=== PATIENT | female | born 1985 | race Caucasian/White ===

== ENCOUNTER → 2016-07-16 | Outpatient (CLI) | payer MEDICAID ==
[~2016-07-16] MED LIST: ALBU8I INH; AMOX500T PO; ANTISOL30 LEFT EAR; CETI10 PO; OB CCAP2 PO; VENTAER INH
[2016-07-16 11:25] LABS: AUTOMATED NEUTROPHIL # 5.5 TH/MM3 (1.8-7.7); BASOPHIL % 0.5 % (0.0-2.0); EOSINOPHIL # 0.6 TH/MM3 (0-0.4); EOSINOPHIL % 6.6 % (0.0-4.0); HEMATOCRIT 40.7 % (35.0-46.0); HEMO FLAGS DIFF FINAL; LYMPH % 30.2 % (9.0-44.0); LYMPHOCYTE # 2.8 TH/MM3 (1.0-4.8); MEAN CELL VOLUME 88.9 FL (80.0-100.0); MEAN CORPUSCULAR HEMOGLOBIN 30.7 PG (27.0-34.0); MEAN CORPUSCULAR HGB CONC 34.6 % (32.0-36.0); NEUT % 58.7 % (16.0-70.0); PLATELET COUNT 279 TH/MM3 (150-450); RED BLOOD COUNT 4.58 MIL/MM3 (4.00-5.30); WHITE BLOOD COUNT 9.4 TH/MM3 (4.0-11.0)
== END ==
LOC: CPRE 10:36
PROVIDERS: ATTEND Obstetrics & Gynecology
DX: Z01.812 Encounter for preprocedural laboratory examination (principal); O02.1 Missed abortion; Z3A.00 Weeks of gestation of pregnancy not specified
CPT/HCPCS: 36415; 85025

== ENCOUNTER → 2016-07-21 | Day surgery (SDC) | payer MEDICAID ==
[~2016-07-21] VITALS: Ht 167.6 cm; Wt 80.6 kg
[~2016-07-21] MED LIST changes: +*diphenhydrAMINE HCL 50 MG/ML VIAL PERIprocedural Use ONLY ONE; +*morphine SULFATE 8 MG/ML PERIprocedure ONLY ONE; +ACETAMINOPHEN 1000 MG/100 ML VIAL IV ONE; -ALBU8I INH; -AMOX500T PO; -ANTISOL30 LEFT EAR; +CHLORHEXIDINE GLUCONATE 2 % 1 PACK (2 CLOTHS) TOPICAL PRN; +DEXAMETHASONE SOD PHOS 4 MG/ML VIAL ONE; +DO NOT ADM ANY ANTICOAGULANT DRUGS PRN; +FAMOTIDINE 20 MG/2 ML VIAL ONE; +IBUPROFEN 600 MG TAB PO PRN; +INSULIN HUMAN REGULAR 1,000 UNITS/10 ML VIAL SQ PRN; +KETOROLAC TROMETHAMINE 60 MG/2 ML (IM) VIAL IM ONE; +LACTATED RINGER'S 1000 ML INJ 1,000 ML IV SCH; +LACTATED RINGER'S 1000 ML IV PRN; +METHYLERGONOVINE MALEATE 0.2 MG TAB ONE; +METOPROLOL TARTRATE 25 MG TAB PO PRN; +MIDAZOLAM HCL 2 MG/2 ML VIAL ONE; +ONDANSETRON HCL 4 MG/2 ML VIAL IV PUSH ONE; +ONDANSETRON HCL 4 MG/2 ML VIAL IVP PRN; +POVIDONE IODINE 5% (ANTISEPSIS KIT) 4 APPLICATIONS EACH NARE PRN; +PROPOFOL 200 MG/20 ML AMP IV ONE; +SODIUM CHLORID 0.9% 500 ML IV PRN; +SODIUM CHLORIDE 0.9% FLUSH 10 ML FLUSH IV FLUSH PRN; +SODIUM CHLORIDE 0.9% FLUSH 10 ML FLUSH IV FLUSH SCH; +ceFAZolin 2 GM PREMIX 50 ML IV SCH; +oxyCODONE/ACETAMINOPHEN 5 MG/325 MG TAB PO PRN
[2016-07-21 09:08] VITALS: BP 121/86; PULSE 79; RESP 16; TEMP 98.1; O2SAT 100
--- NOTE | 2016-07-21 12:16 | MP ---
cc: STEPHANIE TORRES MD CORTEZ,AB Sharif M.D. DATE OF SURGERY: 07/21/2016 PREOPERATIVE DIAGNOSIS Missed at about 6 weeks gestation. POSTOPERATIVE DIAGNOSIS Missed at about 6 weeks gestation. SURGEON Ab Aragon MD ANESTHESIA General with LMA ESTIMATED BLOOD LOSS None. The patient's maternal blood type is O+. INDICATION FOR PROCEDURE Patient was followed for early . The patient failed to develop normal growth. Yolk sac was evident but no evidence of pole confirmed by serial ultrasound. The patient elected for D&C with suction. The patient's maternal blood type is O+. DESCRIPTION OF PROCEDURE The patient received Ancef x 2 grams prophylactically. She underwent general anesthesia with LMA. She was carefully positioned in dorsolithotomy position using candy-cane stirrups with sequentials placed on lower extremities for VTE prophylaxis. She was carefully positioned in appropriate padding where necessary. The time-out was conducted and agreed by all present in the room. The patient was then draped. Exam revealed a retroverted uterus about 7 weeks in size. The cervix was identified by simple bivalve retractor, secured with a single-tooth tenaculum, dilated to accommodate a #8 curved suction curette which was passed into the uterine cavity without complication, no perforation. Evacuation of the uterine contents was accomplished. Tissue was labeled products of conception. A handheld curette was then used to confirm removal of all products of conception with the gentle curettage. At the completion of the case there was no active bleeding. The patient received Methergine 0.2 mg IM x1. The final count was correct. She was taken to the recovery room on room air. Ab Aragon MD SJC/TLL /11:05 AM /12:04 PM
[2016-07-21 12:30] VITALS: BP 106/70; PULSE 64; RESP 16; TEMP 97.8; O2SAT 99
== END | disposition home or self-care (01) ==
LOC: HSDC 08:28
PROVIDERS: ATTEND Obstetrics & Gynecology
DX: O03.4 Incomplete spontaneous abortion without complication (principal); J45.909 Unspecified asthma, uncomplicated
CPT/HCPCS: 01965; 59812; 86850; 86900; 86901; 88305; J0131; J0690; J1100; J1200; J1885; J2250; J2270; J2405; J3010; J7120

== ENCOUNTER 2016-10-21 11:52 | Emergency (ER) | payer MEDICAID ==
[~2016-10-21] VITALS: Ht 167.6 cm; Wt 72.7 kg
[~2016-10-21 11:52] MED LIST changes: -*diphenhydrAMINE HCL 50 MG/ML VIAL PERIprocedural Use ONLY ONE; -*morphine SULFATE 8 MG/ML PERIprocedure ONLY ONE; -ACETAMINOPHEN 1000 MG/100 ML VIAL IV ONE; -CHLORHEXIDINE GLUCONATE 2 % 1 PACK (2 CLOTHS) TOPICAL PRN; -DEXAMETHASONE SOD PHOS 4 MG/ML VIAL ONE; -DO NOT ADM ANY ANTICOAGULANT DRUGS PRN; -FAMOTIDINE 20 MG/2 ML VIAL ONE; -IBUPROFEN 600 MG TAB PO PRN; -INSULIN HUMAN REGULAR 1,000 UNITS/10 ML VIAL SQ PRN; -KETOROLAC TROMETHAMINE 60 MG/2 ML (IM) VIAL IM ONE; -LACTATED RINGER'S 1000 ML INJ 1,000 ML IV SCH; -LACTATED RINGER'S 1000 ML IV PRN; -METHYLERGONOVINE MALEATE 0.2 MG TAB ONE; -METOPROLOL TARTRATE 25 MG TAB PO PRN; -MIDAZOLAM HCL 2 MG/2 ML VIAL ONE; -ONDANSETRON HCL 4 MG/2 ML VIAL IV PUSH ONE; -ONDANSETRON HCL 4 MG/2 ML VIAL IVP PRN; -POVIDONE IODINE 5% (ANTISEPSIS KIT) 4 APPLICATIONS EACH NARE PRN; -PROPOFOL 200 MG/20 ML AMP IV ONE; -SODIUM CHLORID 0.9% 500 ML IV PRN; -SODIUM CHLORIDE 0.9% FLUSH 10 ML FLUSH IV FLUSH PRN; -SODIUM CHLORIDE 0.9% FLUSH 10 ML FLUSH IV FLUSH SCH; -ceFAZolin 2 GM PREMIX 50 ML IV SCH; -oxyCODONE/ACETAMINOPHEN 5 MG/325 MG TAB PO PRN
[2016-10-21 11:53] VITALS: BP 123/75; PULSE 78; RESP 18; TEMP 98.6; O2SAT 98
--- NOTE | 2016-10-21 11:59 | PD ---
Physical Exam Time Seen by Provider: 11:57 Narrative 30 y/o female here with bilateral ankle pain. She stepped on a rock yesterday. Vital signs reviewed. Seen at triage desk. Awaiting bed placement. Data Data Last Documented VS Vital Signs Date Time Temp Pulse Resp B/P Pulse Ox O2 Delivery O2 Flow Rate FiO2 10/21/16 11:53 98.6 78 18 123/75 98 Room Air [facility] Medical Record Reviewed: Yes Supervised Visit with MICHELLE: Sam Figueroa Oct 21, 2016 11:59
--- NOTE | 2016-10-21 13:08 | PD ---
HPI Chief Complaint: Injury Time Seen by Provider: 13:08 Travel History International Travel<30 days: No Contact w/Intl Traveler<30days: No Traveled to known affect area: No History of Present Illness HPI 30-year-old female presents to the emergency room department for evaluation of bilateral ankle pain. Patient states last evening she stepped on a rock with her right foot and rolled her ankle. She tried to save her from falling when she stepped with her left foot onto the sidewalk but missed it, rolling over it. States today. Walking has been extremely painful. Her ankles are both swollen. She states that she believes she may have broken something. She has no other symptoms to report. PFSH Past Medical History Asthma: Yes Cancer: No Cardiovascular Problems: No Diabetes: No Endocrine: No Genitourinary: No Hepatitis: No Hiatal Hernia: No Immune Disorder: No Musculoskeletal: No Neurologic: No Psychiatric: No Respiratory: Yes (ASTHMA) Thyroid Disease: No ?: Not LMP: 09/30/16 Dilation and Curettage (D&C): Yes Past Surgical History Abdominal Surgery: No AICD: No Body Medical Devices: BRACES Cardiac Surgery: No Ear Surgery: No Endocrine Surgery: No Eye Surgery: No Genitourinary Surgery: No Gynecologic Surgery: Yes (D/C ) Joint Replacement: No Oral Surgery: No Pacemaker: No Thoracic Surgery: No Social History Alcohol Use: No Tobacco Use: No Substance Use: No Allergies-Medications (Allergen,Severity, Reaction): Coded Allergies: Tetracycline (Verified Allergy, Severe, HIVES, 10/21/16) Cipro (Verified Allergy, Unknown, 10/21/16) Reported Meds & Prescriptions Reported Meds & Active Scripts Active Ibuprofen 800 Mg Tab 800 Mg PO Q8H PRN Reported Ob Complete/Dha 30-10-1-200 mg (Prenat Vit W/ Iron Carbonyl-Fe) 1 Cap Cap 1 Cap PO DAILY Ventolin Hfa 18 GM Inh (Albuterol Sulfate) 90 Mcg/Act Aer 2 Puff INH Q4-6H PRN Cetirizine (Cetirizine HCl) 10 Mg Tab 10 Mg PO DAILY Review of Systems Except as stated in HPI: all other systems reviewed are Neg Physical Exam Narrative GENERAL: Well-nourished, well-developed female patient in no acute distress SKIN: Focused skin assessment warm/dry. HEAD: Normocephalic. EYES: No scleral icterus. No injection or drainage. NECK: Supple, trachea midline. No JVD or lymphadenopathy. CARDIOVASCULAR: Regular rate and rhythm without murmurs, gallops, or rubs. RESPIRATORY: Breath sounds equal bilaterally. No accessory muscle use. EXTREMITY: The right and left ankles are swollen and tender over the lateral aspect but the skin is intact and there is no ligamentous instability. There is no deformity. The foot and toes are warm and well-perfused. Sensation to pain and light touch is intact. Data Data Last Documented VS Vital Signs Date Time Temp Pulse Resp B/P Pulse Ox O2 Delivery O2 Flow Rate FiO2 10/21/16 13:08 Room Air 10/21/16 11:53 98.6 78 18 123/75 98 Orders Ankle, Limited (Ap&Lat) (10/21/16 ) Ankle, Limited (Ap&Lat) (10/21/16 ) Crutches (10/21/16 15:33) MDM Medical Decision Making Medical Screen Exam Complete: Yes Emergency Medical Condition: Yes Medical Record Reviewed: Yes Differential Diagnosis Sprain versus fracture versus contusion versus dislocation Narrative Course 30-year-old female presents to the emergency department for evaluation. Patient appears without distress. She does have bilateral ankle swelling. X- ray imaging is without acute bony abnormality. Patient is able to ambulate. Patient is placed in Dung wraps and provided crutches. She is counseled on care. She agrees to return immediately with any acute worsening symptoms. Diagnosis Primary Impression: Left ankle sprain Qualified Code: S93.402A - Sprain of left ankle, unspecified ligament, initial encounter Additional Impression: Right ankle sprain Qualified Code: S93.401A - Sprain of right ankle, unspecified ligament, initial encounter Referrals: Primary Care Physician Patient Instructions: Ankle Sprain (ED), Ankle Sprain Exercises (GEN), General Instructions Additional Instructions: Ice and elevate the affected extremity DUNG wrap and/or ankle brace for support and comfort Return to ED with acute worsening of symptoms Med/Other Pt SpecificInfo: Prescription(s) given Scripts Ibuprofen 800 Mg Atd253 Mg PO Q8H PRN (PAIN SCALE 1 TO 10) #30 TAB Ref 0 Prov:Frances Alberto 10/21/16 Disposition: 01 DISCHARGE HOME Condition: Stable Frances Alberto Oct 21, 2016 13:08
--- NOTE | 2016-10-21 14:05 | RADRPT ---
EXAM DATE/TIME: 10/21/2016 13:54 [facility] COMPARISON: ANKLE RIGHT LIMITED (AP&LAT), October 21, 2016, 13:52. INDICATIONS : Patient stepped on a rock and twisted right ankle and proceeded to fall down on left ankle last night . MEDICAL HISTORY : None. SURGICAL HISTORY : None. ENCOUNTER: Initial ACUITY: 1 day PAIN SCORE: 5/10 LOCATION: Left Posterior aspect of ankle. FINDINGS: There is diffuse soft tissue swelling about the ankle mortise. No acute fracture or retained foreign body is identified. CONCLUSION: Diffuse soft tissue swelling. No acute fracture or retained foreign body is identified. Nikos Hall MD on October 21, 2016 at 14:03 Board Certified Radiologist. This report was verified electronically.
--- NOTE | 2016-10-21 14:26 | RADRPT ---
EXAM DATE/TIME: 10/21/2016 13:52 [facility] COMPARISON: No previous studies available for comparison. INDICATIONS : Patient stepped on a rock and twisted right ankle and proceeded to fall down on left ankle last night . MEDICAL HISTORY : None. SURGICAL HISTORY : None. ENCOUNTER: Initial ACUITY: 1 day PAIN SCORE: 5/10 LOCATION: Right Lateral ankle. FINDINGS: Two view examination was performed of the right ankle. The bony structures are in normal alignment. No evidence of fracture or dislocation. Lateral soft tissue swelling. No radiopaque foreign bodies are seen. Bony mineralization is normal. CONCLUSION: Lateral soft tissue swelling. Edgar Manrique Jr., MD on October 21, 2016 at 14:23 Board Certified Radiologist. This report was verified electronically.
[2016-10-21] MEDS ORDERED: IBUP800T23 PO (14:42)
== END 2016-10-21 15:11 | disposition home or self-care (01) ==
LOC: NEPK 11:52
DX: S93.402A Sprain of unspecified ligament of left ankle, initial encounter (principal); S93.401A Sprain of unspecified ligament of right ankle, initial encounter; J45.909 Unspecified asthma, uncomplicated; W22.8XXA Striking against or struck by other objects, initial encounter; Z79.899 Other long term (current) drug therapy; Z88.1 Allergy status to other antibiotic agents
CPT/HCPCS: 73600; 99283; E0113

== ENCOUNTER 2017-03-28 09:54 | Emergency (ER) | payer MEDICAID ==
[~2017-03-28] VITALS: Ht 167.6 cm; Wt 80.0 kg
[~2017-03-28 09:54] MED LIST changes: +IBUP1TAB7 PO
[2017-03-28 09:55] VITALS: BP 158/78; PULSE 129; RESP 18; TEMP 98.4; O2SAT 95
[2017-03-28 10:16] VITALS: BP 133/77; PULSE 112; RESP 19; O2SAT 95
--- NOTE | 2017-03-28 10:19 | PD ---
HPI Chief Complaint: Respiratory Symptoms Time Seen by Provider: 10:11 Travel History International Travel<30 days: No Contact w/Intl Traveler<30days: No Traveled to known affect area: No History of Present Illness HPI Patient is a 31-year-old female with a history of asthma presents approximately 25 weeks for evaluation of shortness of breath. Patient states she has a nebulizer at home and has been using her son's albuterol treatments 2 over the past 24 hours which helped a little bit but still feels short of breath. No long trips no history of blood clots. Denies any chest pain denies any fevers denies any cough or congestion. Symptoms are mild, context as above , mildly relieved by albuterol treatments at home, associated signs symptoms as above. 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) Musculoskeletal: No Neurologic: No Psychiatric: No Respiratory: Yes (ASTHMA) Migraines: Yes Thyroid Disease: No Tetanus Vaccination: > 5 Years ?: LMP: 09/25 Dilation and Curettage (D&C): Yes Past Surgical History Abdominal Surgery: No AICD: No Body Medical Devices: BRACES Cardiac Surgery: No Ear Surgery: No Endocrine Surgery: No Eye Surgery: No Genitourinary Surgery: No Gynecologic Surgery: Yes (D/C ) Joint Replacement: No Oral Surgery: No Pacemaker: No Thoracic Surgery: No Social History Alcohol Use: No Tobacco Use: No Substance Use: No Allergies-Medications (Allergen,Severity, Reaction): Coded Allergies: doxycycline (Unverified Allergy, Severe, HIVES, 03/28/17) minocycline (Unverified Allergy, Severe, HIVES, 03/28/17) tigecycline (Unverified Allergy, Severe, HIVES, 03/28/17) ciprofloxacin (Unverified Allergy, Unknown, 03/28/17) Reported Meds & Prescriptions Reported Meds & Active Scripts Active Albuterol Neb (Albuterol Sulfate) 2.5 Mg/3 Ml Neb 2.5 Mg NEB Q4HR NEB While awake Prednisone 20 Mg Tab 40 Mg PO DAILY 4 Days Take 40 mg (2 tablets) daily for 5 days Proair Hfa 8.5 GM Inh (Albuterol Sulfate) 90 Mcg/Act Aer 2 Puff INH Q6H PRN 108 mcg/actuation Ibuprofen 800 Mg Tab 800 Mg PO Q8H PRN Reported Ob Complete/Dha 30-10-1-200 mg (Prenat Vit W/ Iron Carbonyl-Fe) 1 Cap Cap 1 Cap PO DAILY Ventolin Hfa 18 GM Inh (Albuterol Sulfate) 90 Mcg/Act Aer 2 Puff INH Q4-6H PRN Cetirizine (Cetirizine HCl) 10 Mg Tab 10 Mg PO DAILY Review of Systems Except as stated in HPI: all other systems reviewed are Neg Physical Exam Narrative GENERAL: Well-developed well-nourished, no obvious distress. SKIN: Focused skin assessment warm/dry. HEAD: Atraumatic. Normocephalic. EYES: Pupils equal and round. No scleral icterus. No injection or drainage. ENT: No nasal bleeding or discharge. Mucous membranes pink and moist. NECK: Trachea midline. No JVD. CARDIOVASCULAR: Regular rate and rhythm. No murmur appreciated. RESPIRATORY: No accessory muscle use. Inspiratory next for wheezing heard throughout all lung patel with good air entry. No retractions. Speaks in full sentences.. Breath sounds equal bilaterally. GASTROINTESTINAL: Abdomen soft, gravid nontender abdomen.. Hepatic and splenic margins not palpable. No rebound no percussive tenderness. No CVA tenderness MUSCULOSKELETAL: No obvious deformities. No clubbing. No cyanosis. No edema. NEUROLOGICAL: Awake and alert. No obvious cranial nerve deficits. Motor grossly within normal limits. Normal speech. PSYCHIATRIC: Appropriate mood and affect; insight and judgment normal. Data Data Last Documented VS Orders Orders Albuterol-Ipratropium Neb (Duoneb Neb) (03/28/17 10:30) Prednisone (Deltasone) (03/28/17 10:30) Heart Tones (03/28/17 10:20) Chest, Pa & Lat (03/28/17 ) Ed Poc Ultrasound (03/28/17 ) Ed Discharge Order (03/28/17 12:19) [facility] Medical Decision Making Medical Screen Exam Complete: Yes Emergency Medical Condition: Yes Differential Diagnosis Pneumonia, asthma exacerbation, URI. Narrative Course Patient roomed in the emergency department, chest x-ray negative, was given breathing treatment is feeling much better. Vital signs are reassuring. She is not having any abdominal complaints no vaginal bleeding or vaginal discharge loss of fluid. No indication further workup in the emergency department. Discussed follow-up with her HOSPITAL SUPERINTENDENT. Stable for discharge. Procedures Procedure Narrative Bedside ultrasound abdomen: Transabdominal views showed a single intrauterine approximately 25 weeks' gestational age, heart tones in the 150s by M-mode. No gross abnormality, movement seen, transverse lie. Diagnosis Primary Impression: Asthma exacerbation Med/Other Pt SpecificInfo: Prescription(s) given Scripts Albuterol Neb (Albuterol Neb) 2.5 Mg/3 Ml Neb 2.5 MG NEB Q4HR NEB for Breathing Treatment, #60 NEBULE 0 Refills While awake Prov: Giuseppe Hopkins MD 03/28/17 Prednisone (Prednisone) 20 Mg Tab 40 MG PO DAILY for 4 Days, #8 TAB 0 Refills Take 40 mg (2 tablets) daily for 5 days Prov: Giuseppe Hopkins MD 03/28/17 Albuterol 8.5 GM Inh (Proair Hfa 8.5 GM Inh) 90 Mcg/Act Aer 2 PUFF INH Q6H Y for SHORTNESS OF BREATH, #1 INHALER 1 Refill 108 mcg/actuation Prov: Giuseppe Hopkins MD 03/28/17 Disposition: 01 DISCHARGE HOME Condition: Stable Giuseppe Hopkins MD Mar 28, 2017 10:19
[2017-03-28] MEDS ORDERED: RESP: ALBUTEROL 2.5 MG/IPRATROPIUM 0.5 MG NEB (SCH) NEB ONE (10:30)
[2017-03-28] MEDS ORDERED: predniSONE 20 MG TAB PO ONE (10:30)
--- NOTE | 2017-03-28 11:15 | RADRPT ---
EXAM DATE/TIME: 03/28/2017 11:05 [facility] COMPARISON: No previous studies available for comparison. INDICATIONS : Short of breath since last night. MEDICAL HISTORY : None. SURGICAL HISTORY : None. ENCOUNTER: Initial ACUITY: 1 day PAIN SCORE: 0/10 LOCATION: Bilateral chest FINDINGS: PA and lateral views of the chest demonstrate the lungs to be symmetrically aerated without evidence of mass, infiltrate or effusion. The cardiomediastinal contours are unremarkable. Osseous structure s are intact. CONCLUSION: No acute disease. Clement Hall MD FACR on March 28, 2017 at 11:12 Board Certified Radiologist. This report was verified electronically.
[2017-03-28] MEDS ORDERED: ALBUAER3 INH (12:19)
[2017-03-28] MEDS ORDERED: PRED20 PO (12:19)
[2017-03-28] MEDS ORDERED: ALBU0.08 NEB (12:19)
[2017-03-28 12:29] VITALS: BP 140/82
== END 2017-03-28 12:40 | disposition home or self-care (01) ==
LOC: NEPC 09:54
DX: O99.512 Diseases of the respiratory system complicating pregnancy, second trimester (principal); J45.901 Unspecified asthma with (acute) exacerbation; Z3A.25 25 weeks gestation of pregnancy
CPT/HCPCS: 71020; 94664; 99284; J7512

== ENCOUNTER 2017-06-20 22:04 | Inpatient (IN) | payer MEDICAID ==
[~2017-06-20] VITALS: Ht 167.6 cm; Wt 88.9 kg
[~2017-06-20 22:04] MED LIST changes: +ALBU0.08 NEB; +ALBUAER3 INH; +PRED20 PO
[2017-06-20 22:53] VITALS: BP 130/86; PULSE 102
--- NOTE | 2017-06-20 22:55 | PD ---
HPI Chief Complaint Contractions Date Seen: Jun 20, 2017 Time Seen: 22:50 Travel History International Travel<30 Days: No Contact w/Intl Traveler<30Days: No Known Affected Area: No History of Present Illness HPI 31-year-old white female 37 --38 weeks who goes to the [facility] clinic and the presents shimon, no leakage of fluid no bleeding. heart tones are reactive and she is shimon every 2-1/2 minutes Weeks Gestation: 37 Para: 1 : 4 History Obstetric History Obstetric History 1 vaginal delivery Social History Alcohol Use: No Tobacco Use: No Substance Abuse: No Allergies-Medications (Allergen,Severity, Reaction): Coded Allergies: doxycycline (Unverified Allergy, Severe, HIVES, 03/28/17) minocycline (Unverified Allergy, Severe, HIVES, 03/28/17) tigecycline (Unverified Allergy, Severe, HIVES, 03/28/17) ciprofloxacin (Unverified Allergy, Unknown, 03/28/17) Home Meds Active Scripts Albuterol Neb (Albuterol Neb) 2.5 Mg/3 Ml Neb, 2.5 MG NEB Q4HR NEB for Breathing Treatment, #60 NEBULE 0 Refills While awake Prov:Giuseppe Hopkins MD 03/28/17 Prednisone (Prednisone) 20 Mg Tab, 40 MG PO DAILY for 4 Days, #8 TAB 0 Refills Take 40 mg (2 tablets) daily for 5 days Prov:Giuseppe Hopkins MD 03/28/17 Albuterol 8.5 GM Inh (Proair Hfa 8.5 GM Inh) 90 Mcg/Act Aer, 2 PUFF INH Q6H Y for SHORTNESS OF BREATH, #1 INHALER 1 Refill 108 mcg/actuation Prov:Giuseppe Hopkins MD 03/28/17 Ibuprofen (Ibuprofen) 800 Mg Tab, 800 MG PO Q8H Y for PAIN SCALE 1 TO 10, #30 TAB 0 Refills Prov:Frances Alberto 10/21/16 Reported Medications Prenat Vit W/ Iron Carbonyl-Fe (Ob Complete/Dha 30-10-1-200 mg) 1 Cap Cap, 1 CAP PO DAILY 07/16/16 Albuterol 18 GM Inh (Ventolin Hfa 18 GM Inh) 90 Mcg/Act Aer, 2 PUFF INH Q4-6H Y for SHORTNESS OF BREATH, #1 INHALER 0 Refills 07/16/16 Cetirizine (Cetirizine) 10 Mg Tab, 10 MG PO DAILY for Allergies, TAB 0 Refills 07/16/16 Review of Systems General / Constitutional: No: Fever, Weight Gain, Chills, Other Eyes: No: Diploplia, Blurred Vision, Visual changes, Pain, Photophobia HENT: No: Headaches, Vertigo, Lightheadedness Cardiovascular: No: Irregular Rhythm, Chest Pain or Discomfort, Palpitations, Tachycardia, Syncope, Varicosities, Edema, Cyanosis Respiratory: No: Cough, Short of Breath, Other Gastrointestinal: Abdominal Pain, No: Nausea, Vomiting, Diarrhea Genitourinary: No: Decreased Urinary Output, Oliguria Musculoskeletal: No: Limited ROM, Weakness, Cramping, Edema, Pain Skin: No Rash, No Itching, No Dryness, No Lumps, No Change in Pigmentation, No Change in Nails, No Alopecia, No Lesions Neurologic: No: Weakness, Dizziness, Syncope, Focal Abnormalities, Coordination Problem, Headache, Slurred Speech, Seizures Psychiatric: No: Depression, Suicidal Ideations, Homicidal Ideation Endocrine: No: Heat Intolerance, Cold Intolerance, Polydipsia, Polyuria, Other Physical Exam Narrative GENERAL: Well-nourished, well-developed patient. SKIN: Warm and dry. HEAD: Normocephalic and atraumatic. EYES: No scleral icterus. No injection or drainage. ENT: No nasal drainage noted. Mucous membranes pink. Airway patent. NECK: Supple, trachea midline. No JVD. CARDIOVASCULAR: Regular rate and rhythm without murmurs, gallops, or rubs. RESPIRATORY: Breath sounds equal bilaterally. No accessory muscle use. BREASTS: Bilateral exam showed no masses , no retractions, no nipple discharge. ABDOMEN/GI: Abdomen soft, non-tender, bowel sounds present, no rebound, no guarding Gravid to [-37] weeks size Fundal Height: [37-] GENITOURINARY: External Genitalia: intact and normal in appearance BUS glands: [-] Cervix: [post-] Dilatation: [-3-4] Effacement: [70-] Station: [-3] Presentation: [-vtx] Membranes: [intact ] Uterine Contractions: [q 2-3 min-] FHT's: Category: [-1] Baseline: [-133] Reactive: [-R] Variability: [-mod] Decels: [-none] EXTREMITIES: No cyanosis or edema. BACK: Nontender without obvious deformity. No CVA tenderness. NEUROLOGICAL: Awake and alert. Motor and sensory grossly within normal limits. Five out of 5 muscle strength in all muscle groups. Normal speech. MDM Interpretation(s) Patient is 31-year-old white female 37--38 weeks who presents with contractions, cervix is 3-4 cm/70/-3/vertex, heart tones are reactive contractions seen every 2-3 minutes and she says they are painful. Plan Plan for this patient is to discuss her care with her covering OB Dr. Dr. Shipman and decide on management. Patient may well stay in the hospital overnight just to see if she is going to change her cervix are going to a more aggressive labor pattern. Diagnosis Diagnosis: Primary Impression: Uterine contractions during Etienne De Jesus II, MD Jun 20, 2017 22:55
[2017-06-20 23:00] VITALS: RESP 18
[2017-06-20] MEDS ORDERED: ONDANSETRON HCL 4 MG/2 ML VIAL IV PUSH PRN (23:00)
[2017-06-20] MEDS ORDERED: ACETAMINOPHEN 325 MG TAB PO PRN (23:00)
[2017-06-20] MEDS ORDERED: SODIUM CHLORIDE 0.9% FLUSH 10 ML FLUSH IV FLUSH PRN (23:00)
[2017-06-20] MEDS ORDERED: PREN29TA PO (23:52)
[2017-06-20 23:57] VITALS: TEMP 98.9
[2017-06-21] VITALS (182 sets, daily range): BP systolic 104–153; BP diastolic 47–94; PULSE 85–121; RESP 16–18; TEMP 97.7–98.5; O2SAT 94–100
[2017-06-21] LABS: AUTOMATED NEUTROPHIL # 11.4 TH/MM3 (1.8-7.7); BASOPHIL % 0.3 % (0.0-2.0); EOSINOPHIL # 0.4 TH/MM3 (0-0.4); EOSINOPHIL % 2.5 % (0.0-4.0); HEMATOCRIT 38.8 % (35.0-46.0); HEMOGLOBIN 13.4 GM/DL (11.6-15.3); LYMPH % 18.1 % (9.0-44.0); LYMPHOCYTE # 2.8 TH/MM3 (1.0-4.8); MEAN CELL VOLUME 89.4 FL (80.0-100.0); MEAN CORPUSCULAR HEMOGLOBIN 30.9 PG (27.0-34.0); MEAN CORPUSCULAR HGB CONC 34.6 % (32.0-36.0); MEAN PLATELET VOLUME 7.5 FL (7.0-11.0); MONO % 6.2 % (0.0-8.0); NEUT % 72.9 % (16.0-70.0); PLATELET COUNT 256 TH/MM3 (150-450); RED BLOOD COUNT 4.34 MIL/MM3 (4.00-5.30); RED CELL DISTRIBUTION WIDTH 13.9 % (11.6-17.2); WHITE BLOOD COUNT 15.7 TH/MM3 (4.0-11.0)
--- NOTE | 2017-06-21 08:08 | HHI.PR ---
HEAD SAWYER Note Note S: doing well, contraction pain less, has headache that began overnight, no vision changes or RUQ / Epigastric pain. Pt denies frequent headaches during the O: BP range since presentation: 113-153/71-94 : cervix 5/50/-3, soft, posterior, BS =6 DTRs: 1+ LE: 1+ edema bilaterally Fetus: FHTs: cat 1 tracing, 120s, mod variability, no decels, acel present Parrott: irregular ctx around every 5 min A/P: 31 yo at 37w5d by stated JENNIFER kept overnight for latent labor 1. IUP: cat 1 tracing - cephalic (sutures palpable on exam), EFW 7lbs, male fetus. 2. Contractions: cervix with minimal change, she is comfortable, still in latent labor, discussed possible need for augmentation, see below 3. GHTN / Headache: Last week pt had mild range BP in office, normal CBC and CMP , no 24hr urine or P:C done, BP range here overnight with mild range diastolics , CBC WNL, will collect CMP and P:C this AM. Will treat headache. If headache resolves and labs WNL, discussed d/c home and follow up early next week, if not then stay for augmentation, pt and in agreement. 4. GBS Pos: if stays for augmentation will begin PCN for ppx Frederick Christine MD Jun 21, 2017 08:08
[2017-06-21 08:53] LABS: ALBUMIN 2.8 GM/DL (3.4-5.0); AST (GOT) 17 U/L (15-37); BLOOD UREA NITROGEN 5 MG/DL (7-18); CALCIUM 9.3 MG/DL (8.5-10.1); CHLORIDE 105 MEQ/L (98-107); CREATININE 0.62 MG/DL (0.50-1.00); GLOMERULAR FILTRATION RATE 112 ML/MIN (>89); GLUCOSE,RANDOM 92 MG/DL (74-106); SODIUM (NA) 140 MEQ/L (136-145)
[2017-06-21 08:54] LABS: ALT (GPT) 23 U/L (10-53)
[2017-06-21 08:57] LABS: ALKALINE PHOSPHATASE 175 U/L (45-117); TOTAL BILIRUBIN ADULT 0.2 MG/DL (0.2-1.0); TOTAL PROTEIN 6.7 GM/DL (6.4-8.2)
[2017-06-21] MEDS: SODIUM CHLORIDE 0.9% FLUSH 10 ML FLUSH IV FLUSH SCH ×2 (09:00→19:40)
[2017-06-21] MEDS ORDERED: ACETAMIN 325 MG/BUTALBITAL 50 MG/CAFFEINE 40 MG TAB PO ONE (09:00)
[2017-06-21] MEDS ORDERED: CETIRIZINE HCL 10 MG TAB PO ONE (09:00)
[2017-06-21] MEDS ORDERED: LACTATED RINGER'S 1000 ML INJ 1,000 ML IV PRN (10:41)
[2017-06-21] MEDS ORDERED: OXYTOCIN 30 UNITS-500ML PREMIX 500 ML IV PRN (10:45)
[2017-06-21] MEDS ORDERED: SODIUM CHLORID 0.9% 500 ML INJ 500 ML IV PRN (10:45)
[2017-06-21] MEDS ORDERED: SODIUM CHLORIDE 0.9% FLUSH 10 ML FLUSH IV FLUSH PRN ×2 (10:45→21:45)
[2017-06-21] MEDS ORDERED: LIDOCAINE HCL 1% 50 ML VIAL I-DERMAL PRN (10:45)
[2017-06-21] MEDS ORDERED: CALCIUM GLUCONATE 10% 1 GM/10 ML VIAL IV PUSH PRN (10:45)
[2017-06-21] MEDS ORDERED: OXYTOCIN 30 UNITS-500ML PREMIX 500 ML IV ONE (10:45)
[2017-06-21] MEDS ORDERED: LIDOCAINE HCL 1% 50 ML VIAL INFIL PRN (10:45)
[2017-06-21] MEDS ORDERED: PENICILLIN G POTASSIUM INJ 5,000,000 UNITS in SODIUM CHLORIDE 0.9% INJ 100 ML IV ONE (10:45)
[2017-06-21] MEDS ORDERED: CITRIC ACID-SODIUM CITRATE LIQ 30 ML UDC PO SCH (10:45)
[2017-06-21] MEDS ORDERED: MINERAL OIL 10 ML VIAL TOPICAL PRN (10:45)
[2017-06-21] MEDS ORDERED: MAGNESIUM SULFATE 4 GM PREMIX 100 ML IV ONE (10:45)
[2017-06-21] MEDS ORDERED: SODIUM CHLOR 0.9% 1000 ML INJ 1,000 ML IV PRN (11:01)
[2017-06-21] MEDS: LACTATED RINGER'S 1000 ML INJ 1,000 ML IV SCH (11:21)
[2017-06-21] MEDS: MAGNESIUM SULFATE 40 GM PREMIX 1,000 ML IV SCH (11:23)
[2017-06-21] MEDS ORDERED: PENICILLIN G POTASSIUM INJ 2,500,000 UNITS in SODIUM CHLORIDE 0.9% INJ 100 ML IV SCH ×6 (14:45→20:00)
[2017-06-21] MEDS ORDERED: ePHEDrine/NS 25 MG/5 ML SYRINGE ONE (14:47)
[2017-06-21] MEDS ORDERED: fentaNYL 2MCG-BUPIV 0.125% INJ 100 ML ONE ×2 (14:47→20:37)
[2017-06-21] MEDS ORDERED: MEASLES, MUMPS, RUBELLA VACCINE 0.5 ML VIAL SQ ONE (16:00)
[2017-06-21] MEDS ORDERED: DIPHTH/TETANUS/ACEL PERTUSSIS (BOOSTER) 0.5 ML VIAL/PFS IM ONE (16:00)
--- NOTE | 2017-06-21 18:14 | HHI.PR ---
CORPORATE COMPLIANCE MANAGER Note Note S: doing well, pain controlled s/p epidural, headache still present, but mild, no vision changes or RUQ / Epigastric pain. O: : cervix 6/50/-1, soft, anterior, BS =6 Fetus: FHTs: cat 1 tracing, 120s, mod variability, no decels, acel present Caroleen: regular ctx every 3 min A/P: 31 yo at 37w5d by stated JENNIFER kept overnight for latent labor 1. IUP: cat 1 tracing - cephalic, EFW 7lbs, male fetus. 2. Augmentation of labor: secondary to #3, s/p AROM this check, clear (1809), she is comfortable. 3. PREC w/ severe features: continue mag 2g/hr, output appropriate, HELLP labs WNL, BPs mild range to normotensive. 4. GBS Pos: continue PCN for ppx Frederick Christine MD Jun 21, 2017 18:14
[2017-06-21] MEDS ORDERED: fentaNYL 2MCG-BUPIV 0.125% 100 ML EPIDURAL SCH (21:00)
[2017-06-21] MEDS ORDERED: ePHEDrine/NS 25 MG/5 ML SYRINGE IV PUSH PRN (21:00)
[2017-06-21] MEDS ORDERED: DO NOT ADMINISTER ANTICOAGULANTS PRN (21:00)
[2017-06-21] MEDS ORDERED: NO SYSTEM NARCOTICS PRN (21:00)
[2017-06-21] MEDS ORDERED: SODIUM CHLORIDE 0.9% FLUSH 10 ML FLUSH IV FLUSH SCH (21:00)
[2017-06-21] MEDS ORDERED: ACETAMINOPHEN 325 MG TAB PO PRN (21:45)
[2017-06-21] MEDS ORDERED: OXYTOCIN 30 UNITS-500ML PREMIX 500 ML IV SCH (21:45)
[2017-06-21] MEDS ORDERED: DOCUSATE SODIUM 50 MG/SENNA 8.6 MG TAB PO PRN (21:45)
[2017-06-21] MEDS ORDERED: WITCH HAZEL 50%/GLYCERIN 12.5% 40 PAD JAR TOPICAL PRN (21:45)
[2017-06-21] MEDS ORDERED: ALUMINUM/MAGNESIUM/SIMETH 30 ML CUP PO PRN (21:45)
[2017-06-21] MEDS ORDERED: BENZOCAINE 20% TOPICAL SPRAY 60 ML CAN TOPICAL PRN (21:45)
[2017-06-21] MEDS ORDERED: ZOLPIDEM TARTRATE 5 MG TAB PO PRN (21:45)
[2017-06-21] MEDS ORDERED: ONDANSETRON ODT 4 MG TAB PO PRN (21:45)
--- NOTE | 2017-06-21 21:48 | HHI.DCPOC ---
Discharge Care Plan Diagnosis: (1) Normal vaginal delivery (2) 37 weeks gestation of (3) Preeclampsia, severe Your Health Problems Are: Vaginal delivery Report Symptoms to Your Doctor -Temperature above 100.5 degrees -Redness, of incision or excessive or foul smelling drainage -Unusual pain or calf pain -Increased vaginal bleeding -Painful or difficulty urinating -Feelings of extreme sadness or anxiety after 2 weeks Goals to Promote Your Health * To prevent worsening of your condition and complications * To maintain your health at the optimal level Directions to Meet Your Goals Take your medications as prescribed Follow your dietary instruction Follow activity as directed Ensure plenty of rest for recovery Drink fluids for hydration Keep your appointments as scheduled Take your immunizations and boosters as scheduled If your symptoms worsen call your PCP, if no PCP go to Urgent Care Center or Emergency Room Smoking is Dangerous to Your Health. Avoid second hand smoke Call the 24-hour crisis hotline for domestic abuse at Frederick Christine MD Jun 21, 2017 21:48
--- NOTE | 2017-06-21 21:53 | PD.OB.DELI ---
Weeks gestation: 37 (37.5) Pt started active labor?: No Medical induction of labor?: Yes Artificial rupture of membrane: Yes Anesthesia: Epidural Episiotomy: None Vaginal Delivery: Normal, Spontaneous Presentation: Occiput anterior, Vertex Nuchal Cord: None Delayed cord clamping (45 sec): Yes Shoulder Dystocia: Other (no dystocia) Delivery date: Jun 21, 2017 Delivery time: 21:19 One Minute : 8 Five Minute : 9 Placenta: Spontaneous delivery, Intact, 3 vessel cord Laceration: 2 deg (repaired with 3-0 Vicryl in standard fashion) Repair: Vicryl running Estimated blood loss: 300 Additional Information Preoperative diagnoses: 1. Intrauterine 37 weeks and 5 days 2. Preeclampsia severe features 3. GBS positive Antibiotics: Penicillin for GBS prophylaxis Complications: none Description of procedure: The patient began pushing after the bed was broken down, the head upon was allowed to restitute naturally after delivery with a supported perineum, with gentle downward guidance anterior shoulder was delivered followed by gentle upper guidance for the posterior shoulder, the torso and lower extremities delivered with ease with continued perineal support. The infant had spontaneous cry and was placed on mom's abdomen for skin to skin contact, we allow delayed cord clamping. After the cord was clamped and cut, cord blood was obtained. Pitocin was bolused and with fundal massage the placenta was delivered, there is minimal bleeding from above and uterus was firm. The perineum vagina and cervix were inspected and found to have a secondary degree laceration that was repaired with 3-0 Vicryl . The patient tolerated the procedure well and was left in the birthing suite with her . Frederick Christine MD Jun 21, 2017 21:53
[2017-06-21 21:57] LABS: BILIRUBIN, URINE NEG (NEG); BLOOD, URINE MOD (NEG); GLUCOSE,URINE NEG (NEG); KETONE, URINE NEG (NEG); NITRITE,URINE NEG (NEG); PH, URINE 5.5 (5.0-8.5); URINE COLOR LIGHT-YELLOW (YELLW/STRAW); URINE LEUKOCYTE ESTERASE MOD (NEG)
[2017-06-21] MEDS: IBUPROFEN 800 MG TAB PO PRN (22:35)
[2017-06-21] MEDS ORDERED: LIDOCAINE HCL 2% JELLY 5 ML SYRINGE TOPICAL PRN (22:45)
[2017-06-22] VITALS (30 sets, daily range): BP systolic 105–131; BP diastolic 66–104; PULSE 75–98; RESP 16–18; TEMP 97.8–98.2
[2017-06-22] MEDS: LACTATED RINGER'S 1000 ML INJ 1,000 ML IV SCH ×2 (03:00→16:31)
--- NOTE | 2017-06-22 08:01 | HHI.OB ---
Subjective Post Day: 1 Remarks pt states she has a bad headache because she has not eaten anything since yesterday morning, on MgSO4 until 9pm tonight, refusing to continue Magnesium unless she can eat regular food Objective Vitals/I&O Vital Signs Date Time Temp Pulse Resp B/P (MAP) Pulse Ox O2 Delivery O2 Flow Rate FiO2 06/22/17 06:00 89 123/75 (91) 06/22/17 05:00 85 116/76 (89) 06/22/17 04:00 87 118/70 (86) 06/22/17 03:00 88 117/74 (88) 06/22/17 02:00 93 121/71 (88) 06/22/17 01:18 16 06/22/17 01:00 82 113/71 (85) 06/22/17 01:00 98.2 06/22/17 00:16 92 127/71 (89) 06/22/17 00:15 18 06/22/17 00:15 18 06/22/17 00:01 86 122/72 (89) 06/21/17 23:31 92 129/69 (89) 06/21/17 23:15 93 124/70 (88) 06/21/17 23:00 97 128/67 (87) 06/21/17 22:45 94 133/77 (95) 06/21/17 22:37 18 06/21/17 22:37 97.7 06/21/17 22:30 95 127/94 (105) 06/21/17 22:29 17 06/21/17 22:26 95 130/90 (103) 06/21/17 22:15 104 06/21/17 22:15 17 06/21/17 22:00 102 18 121/71 (88) 06/21/17 21:45 112 120/63 (82) 06/21/17 21:41 17 06/21/17 21:36 18 06/21/17 21:30 115 115/61 (79) 06/21/17 21:15 111 100 06/21/17 21:10 104 100 06/21/17 21:05 108 100 06/21/17 21:00 106 06/21/17 21:00 105 125/70 (88) 100 06/21/17 20:55 107 100 3/13/18 20:50 116 100 18 20:45 111 100 18 20:40 114 100 18 20:35 108 100 18 20:30 111 18 20:30 108 121/71 (88) 100 18 20:25 114 99 18 20:20 109 100 18 20:15 111 100 18 20:10 114 100 18 20:05 112 100 18 20:00 111 100 18 20:00 104 126/73 (90) 18 19:55 111 100 06/21/17 19:50 107 100 06/21/17 19:45 106 100 06/21/17 19:40 111 100 06/21/17 19:35 109 100 06/21/17 19:30 109 06/21/17 19:30 111 130/74 (92) 100 06/21/17 19:25 106 100 06/21/17 19:23 97.7 06/21/17 19:20 101 100 18 19:15 104 100 06/21/17 19:10 105 100 18 19:05 106 100 18 19:04 106 129/68 (88) 06/21/17 19:04 17 06/21/17 19:02 99 18 19:00 98 99 18 18:55 105 100 18 18:50 106 100 18 18:45 102 123/69 (87) 100 18 18:45 104 18 18:40 105 100 18 18:37 18 06/21/17 18:35 104 100 18 18:30 104 18 18:30 100 112/64 (80) 100 18 18:25 98 100 18 18:20 99 100 18 18:15 103 18 18:15 17 06/21/17 18:15 98 126/74 (91) 100 18 18:10 104 100 18 18:05 97 100 18 18:00 102 129/79 (96) 99 3/13/18 18:00 98.5 18 18:00 97 18 18:00 18 06/21/17 17:55 99 100 06/21/17 17:50 98 100 18 17:46 96 120/73 (89) 06/21/17 17:45 95 100 06/21/17 17:40 103 100 06/21/17 17:35 95 99 06/21/17 17:30 105 17 100 06/21/17 17:30 99 126/75 (92) 06/21/17 17:25 105 99 06/21/17 17:20 100 98 06/21/17 17:15 109 06/21/17 17:15 18 06/21/17 17:15 102 111/61 (78) 99 06/21/17 17:10 106 99 06/21/17 17:05 101 100 06/21/17 17:00 101 122/71 (88) 97 06/21/17 17:00 99 06/21/17 16:55 108 98 06/21/17 16:50 106 99 06/21/17 16:45 104 117/66 (83) 94 06/21/17 16:45 111 06/21/17 16:40 110 97 06/21/17 16:35 105 97 06/21/17 16:30 107 118/63 (81) 06/21/17 16:30 105 06/21/17 16:30 17 97 06/21/17 16:25 104 96 06/21/17 16:20 114 98 06/21/17 16:15 108 121/65 (83) 97 06/21/17 16:15 106 06/21/17 16:10 112 121/67 (85) 98 06/21/17 16:10 109 06/21/17 16:05 109 99 06/21/17 16:05 115 113/53 (73) 06/21/17 16:03 16 06/21/17 16:00 17 06/21/17 16:00 121 100 06/21/17 16:00 116/66 (83) 18 16:00 116 06/21/17 15:58 114 119/66 (83) 06/21/17 15:55 104/59 (74) 3/13/18 15:55 113 18 15:55 113 98 18 15:54 17 18 15:50 106 122/66 (84) 18 15:50 109 98 06/21/18 15:45 111 3//18 15:45 117 123/64 (83) 100 18 15:40 111 110/58 (75) 99 06/21/17 15:40 110 18 15:38 107 108/61 (77) 18 15:35 114 116/62 (80) 96 06/21/17 15:35 101 18 15:33 17 06/21/17 15:30 109 129/69 (89) 99 06/21/17 15:30 120 06/21/17 15:27 104 123/59 (80) 06/21/17 15:27 18 06/21/17 15:25 115/47 (69) 06/21/17 15:25 110 98 06/21/17 15:25 113 06/21/17 15:21 95 132/57 (82) 06/21/17 15:20 96 99 06/21/17 15:15 93 17 144/88 (106) 100 06/21/17 15:15 93 06/21/17 15:10 97 150/91 (110) 99 06/21/17 15:10 98 06/21/17 15:08 101 136/86 (103) 06/21/17 15:05 101 99 06/21/17 15:01 93 123/73 (90) 06/21/17 15:00 93 99 06/21/17 14:55 89 100 18 14:52 18 06/21/17 14:50 91 100 18 14:46 96 137/79 (98) 06/21/17 14:45 91 100 18 14:40 104 100 06/21/17 14:35 92 100 06/21/17 14:30 93 18 14:30 93 124/69 (87) 100 06/21/17 14:25 92 100 18 14:20 90 100 18 14:16 91 129/73 (91) 3/13/18 14:15 90 100 06/21/17 14:15 98.0 06/21/17 14:10 92 100 06/21/17 14:05 93 100 06/21/17 14:00 88 142/83 (102) 06/21/17 14:00 95 17 98 06/21/17 13:56 18 06/21/17 13:55 92 99 06/21/17 13:50 92 100 06/21/17 13:46 86 130/84 (99) 06/21/17 13:45 87 100 06/21/17 13:40 91 100 06/21/17 13:39 18 06/21/17 13:35 87 100 06/21/17 13:30 93 06/21/17 13:30 89 143/90 (107) 100 06/21/17 13:28 17 06/21/17 13:25 89 98 06/21/17 13:20 86 98 06/21/17 13:16 100 136/67 (90) 06/21/17 13:15 96 99 06/21/17 13:14 18 06/21/17 13:10 92 06/21/17 13:10 100 06/21/17 13:05 99 06/21/17 13:05 94 06/21/17 13:01 89 136/89 (105) 06/21/17 13:00 89 06/21/17 13:00 99 06/21/17 12:55 92 06/21/17 12:55 100 06/21/17 12:54 17 06/21/17 12:50 99 06/21/17 12:50 90 06/21/17 12:45 99 06/21/17 12:45 85 138/83 (101) 06/21/17 12:45 87 06/21/17 12:40 99 06/21/17 12:40 88 06/21/17 12:35 89 06/21/17 12:35 100 06/21/17 12:31 92 124/82 (96) 06/21/17 12:30 100 18 12:30 91 06/21/17 12:30 18 06/21/17 12:25 100 06/21/17 12:25 97 06/21/17 12:20 95 06/21/17 12:20 100 06/21/17 12:15 96 06/21/17 12:15 100 06/21/17 12:15 95 132/85 (101) 06/21/17 12:10 93 06/21/17 12:10 100 06/21/17 12:05 101 06/21/17 12:05 98 06/21/17 12:01 101 133/81 (98) 06/21/17 12:00 99 06/21/17 12:00 101 06/21/17 11:55 103 99 06/21/17 11:50 107 06/21/17 11:50 100 06/21/17 11:45 99 06/21/17 11:45 93 06/21/17 11:41 99 145/81 (102) 06/21/17 11:40 103 06/21/17 11:35 101 06/21/17 11:35 100 06/21/17 11:35 145/90 (108) 06/21/17 11:31 136/84 (101) 06/21/17 11:31 96 06/21/17 11:30 18 06/21/17 11:30 100 06/21/17 11:25 112 139/93 (108) 06/21/17 11:25 97 06/21/17 11:25 100 06/21/17 11:20 100 06/21/17 11:20 102 06/21/17 11:20 99 142/94 (110) 06/21/17 11:17 93 140/94 (109) 06/21/17 11:01 96 131/88 (102) 06/21/17 10:56 17 06/21/17 10:33 96 151/94 (113) 06/21/17 10:20 18 06/21/17 10:19 98 133/75 (94) 06/21/17 09:53 18 06/21/17 09:53 91 133/70 (91) 06/21/17 09:45 17 06/21/17 08:54 91 18 134/88 (103) 06/21/17 08:15 17 06/21/17 08:00 98.2 06/21/17 08:00 96 143/86 (105) 06/21/17 07:58 145/92 (109) Other Results good urine output Objective Remarks GENERAL: Well-nourished, well-developed patient. CARDIOVASCULAR: Regular rate and rhythm without murmurs, gallops, or rubs. RESPIRATORY: Breath sounds equal bilaterally. No accessory muscle use. ABDOMEN/GI: Abdomen soft, non-tender. Fundus: Firm, non-tender at umbilicus. GENITOURINARY: Light to moderate bleeding. EXTREMITIES: No cyanosis or edema, non-tender, without signs of DVT. Medications and IVs Current Medications Medications (Trade) Dose Ordered Sig/Christi Route Start Time Stop Time Status Last Admin Magnesium Sulfate 1,000 ml @ 50 mls/hr Q20H IV 06/21/17 10:38 06/22/17 21:30 06/21/17 11:23 (NS Flush) 2 ml BID IV FLUSH 06/22/17 09:00 (NS Flush) 2 ml UNSCH PRN IV FLUSH 06/21/17 21:45 (Tylenol) 650 mg Q4H PRN PO 06/21/17 21:45 06/21/17 22:35 (Motrin) 800 mg Q8H PRN PO 06/21/17 21:45 06/21/17 22:35 (Percocet 5-325 Mg) 1 tab Q4H PRN PO 06/21/17 21:45 (Percocet 5-325 Mg) 2 tab Q4H PRN PO 06/21/17 21:45 (Americaine 20% Top Spr) 1 spray Q4H PRN TOPICAL 06/21/17 21:45 (Tucks Pads) 1 applic QID PRN TOPICAL 06/21/17 21:45 (Gemini-Colace) 2 tab Q12H PRN PO 06/21/17 21:45 (Ambien) 5 mg HS PRN PO 06/21/17 21:45 (Mag-Al Plus Susp Liq) 15 ml Q8H PRN PO 06/21/17 21:45 (Zofran Odt) 4 mg Q6H PRN PO 06/21/17 21:45 (Xylocaine 2% Jelly) 5 ml UNSCH PRN TOPICAL 06/21/17 22:45 06/21/17 23:56 Assessment/Plan Problem List: (1) Normal vaginal delivery ICD Codes: O80 - Encounter for full-term uncomplicated delivery (2) Preeclampsia, severe ICD Codes: O14.10 - Severe pre-eclampsia, unspecified trimester (3) 37 weeks gestation of ICD Codes: Z3A.37 - 37 weeks gestation of Assessment and Plan s/p PPD #1 on MgSO4 will advance diet, d/c mg at 9pm, fioricet prn Discharge Planning routine Attending Attestation seen by Peyton Chacon MD Jun 22, 2017 08:01
[2017-06-22] MEDS: ACETAMIN 325 MG/BUTALBITAL 50 MG/CAFFEINE 40 MG TAB PO PRN ×2 (08:27→22:20)
[2017-06-22] MEDS: oxyCODONE/ACETAMINOPHEN 5 MG/325 MG TAB PO PRN ×3 (08:28→19:04)
[2017-06-22] MEDS ORDERED: MULTIVIT/MIN/PREN/FOL AC/IRON PRENATAL TAB PO SCH (09:00)
[2017-06-22] MEDS: CETIRIZINE HCL 10 MG TAB PO SCH (09:00)
[2017-06-22] MEDS: IBUPROFEN 800 MG TAB PO PRN ×2 (12:40→22:20)
[2017-06-22] MEDS: SODIUM CHLORIDE 0.9% FLUSH 10 ML FLUSH IV FLUSH SCH (19:48)
[2017-06-22] MEDS: MAGNESIUM SULFATE 40 GM PREMIX 1,000 ML IV SCH (20:54)
[2017-06-23 02:50] VITALS: BP 131/76; PULSE 86; RESP 16; TEMP 97.9
[2017-06-23 06:00] VITALS: BP 117/85; PULSE 83; RESP 16; TEMP 98.4
[2017-06-23] MEDS: IBUPROFEN 800 MG TAB PO PRN ×2 (06:08→15:20)
[2017-06-23 08:00] VITALS: BP 118/76; PULSE 74; RESP 18; TEMP 97.7
[2017-06-23] MEDS: SODIUM CHLORIDE 0.9% FLUSH 10 ML FLUSH IV FLUSH SCH (09:00)
[2017-06-23] MEDS: CETIRIZINE HCL 10 MG TAB PO SCH (09:00)
--- NOTE | 2017-06-23 11:57 | HHI.OB ---
Subjective Post Day: 2 Remarks doing well no complaints reviewed circumcision Objective Vitals/I&O Vital Signs Date Time Temp Pulse Resp B/P (MAP) Pulse Ox O2 Delivery O2 Flow Rate FiO2 06/23/17 08:00 97.7 18 06/23/17 08:00 74 118/76 (90) 06/23/17 06:00 98.4 83 16 117/85 (96) 06/23/17 02:50 97.9 86 16 131/76 (94) 06/22/17 22:00 82 16 106/79 (88) 06/22/17 22:00 98.2 06/22/17 20:04 18 06/22/17 19:19 17 06/22/17 19:00 86 115/80 (92) 06/22/17 18:00 82 105/68 (80) 06/22/17 17:24 16 06/22/17 17:00 82 115/66 (82) 06/22/17 16:00 83 113/70 (84) 06/22/17 15:55 18 06/22/17 15:00 87 126/77 (93) 06/22/17 14:19 88 120/72 (88) 06/22/17 14:00 75 129/104 (112) 06/22/17 13:42 18 06/22/17 13:00 95 129/79 (96) 06/22/17 12:35 98.2 18 06/22/17 12:00 86 124/66 (85) 06/22/17 12:00 18 Other Results good urine output Objective Remarks GENERAL: Well-nourished, well-developed patient. CARDIOVASCULAR: Regular rate and rhythm without murmurs, gallops, or rubs. RESPIRATORY: Breath sounds equal bilaterally. No accessory muscle use. ABDOMEN/GI: Abdomen soft, non-tender. Fundus: Firm, non-tender at umbilicus. GENITOURINARY: Light to moderate bleeding. EXTREMITIES: No cyanosis or edema, non-tender, without signs of DVT. Medications and IVs Current Medications Medications (Trade) Dose Ordered Sig/Christi Route Start Time Stop Time Status Last Admin (NS Flush) 2 ml BID IV FLUSH 06/22/17 09:00 (NS Flush) 2 ml UNSCH PRN IV FLUSH 06/21/17 21:45 (Tylenol) 650 mg Q4H PRN PO 06/21/17 21:45 06/21/17 22:35 (Motrin) 800 mg Q8H PRN PO 06/21/17 21:45 06/23/17 06:08 (Percocet 5-325 Mg) 1 tab Q4H PRN PO 06/21/17 21:45 06/22/17 19:04 (Percocet 5-325 Mg) 2 tab Q4H PRN PO 06/21/17 21:45 (Americaine 20% Top Spr) 1 spray Q4H PRN TOPICAL 06/21/17 21:45 06/22/17 19:03 (Tucks Pads) 1 applic QID PRN TOPICAL 06/21/17 21:45 06/22/17 19:03 (Gemini-Colace) 2 tab Q12H PRN PO 06/21/17 21:45 (Ambien) 5 mg HS PRN PO 06/21/17 21:45 (Mag-Al Plus Susp Liq) 15 ml Q8H PRN PO 06/21/17 21:45 (Zofran Odt) 4 mg Q6H PRN PO 06/21/17 21:45 (Xylocaine 2% Jelly) 5 ml UNSCH PRN TOPICAL 06/21/17 22:45 06/21/17 23:56 (Stuartnatal Plus 3 ) 1 tab DAILY PO 06/22/17 09:00 06/22/17 08:27 (Fioricet 325-50-40) 1 tab Q6H PRN PO 06/22/17 08:15 06/22/17 22:20 (ZyrTEC) 10 mg DAILY PO 06/22/17 09:00 Assessment/Plan Problem List: (1) Normal vaginal delivery ICD Codes: O80 - Encounter for full-term uncomplicated delivery (2) Preeclampsia, severe ICD Codes: O14.10 - Severe pre-eclampsia, unspecified trimester (3) 37 weeks gestation of ICD Codes: Z3A.37 - 37 weeks gestation of Assessment and Plan s/p PPD #2 doing well and ready for discharge home will advance diet, d/c mg at 9pm, fioricet prn Discharge Planning routine Mariza Townsend MD Jun 23, 2017 11:57
[2017-06-23 12:00] VITALS: BP 121/74; PULSE 92; RESP 20; TEMP 98.1
[2017-06-23] MEDS: oxyCODONE/ACETAMINOPHEN 5 MG/325 MG TAB PO PRN ×2 (12:52→17:31)
== END 2017-06-23 18:32 | disposition home or self-care (01) | DRG 775 ==
LOC: HOBED 22:04 → H2EB 23:02 → OBSVTOIN 06-21 10:39 → H2EA 06-22 00:17 → H1EA 06-22 20:57
PROVIDERS: ADMIT Obstetrics & Gynecology; ATTEND Obstetrics & Gynecology
PROC: 10E0XZZ Delivery of Products of Conception, External Approach (ICD-10-PCS; principal; 2017-06-21)
PROC: 0KQM0ZZ Repair Perineum Muscle, Open Approach (ICD-10-PCS; 2017-06-21)
PROC: 00HU33Z Insertion of Infusion Device into Spinal Canal, Percutaneous Approach (ICD-10-PCS; 2017-06-21)
PROC: 3E0R3BZ Introduction of Anesthetic Agent into Spinal Canal, Percutaneous Approach (ICD-10-PCS; 2017-06-21)
PROC: 0T9B70Z Drainage of Bladder with Drainage Device, Via Natural or Artificial Opening (ICD-10-PCS; 2017-06-21)
DX: O14.14 Severe pre-eclampsia complicating childbirth (principal); O99.89 Other specified diseases and conditions complicating pregnancy, childbirth and the puerperium; R51 Headache; O99.824 Streptococcus B carrier state complicating childbirth; O70.1 Second degree perineal laceration during delivery; Z37.0 Single live birth; Z3A.37 37 weeks gestation of pregnancy; Z23 Encounter for immunization
CPT/HCPCS: 59025; 80053; 80307; 81001; 82570; 83735; 84156; 85025; 86900; 86901; 90715; 96360; 96361; G0378; G0481; J2540; J2590; J3475; J7120